=== PATIENT | female | born 1940 | race Caucasian/White ===

== ENCOUNTER 2016-12-24 22:12 | Emergency (ER) | payer MEDICARE, BC ==
--- NOTE | ~2016-12-24 | CR181 ---
[facility] A Service of [facility] RADIOLOGY TEXT RESULTS PATIENT: GERMAN CAT LOCATION: SED : 38 UNIT #: [id number] AGE: [address]: Luis E Sheehan MD SEX: F ORDER DR: [id number] [place] [id number] E MR#: [id number] Acc #: [id number] NAME: GERMAN CAT : 1940 SEX: F STUDY DATE/TIME: 12/24/2016 22:31 UNIT: SED ROOM: STUDY DESCRIPTION: CR Lumbar Spine 2 or 3 Views Attending Physician: Luis E Sheehan M.D. Ordering Physician: Luis E Sheehan M.D. Primary Care Physician: Dimitri Georges D.O. MEDICAL IMAGING REPORT This report is preliminary unless electronic signature is present. EXAM Lumbar spine series HISTORY Back pain, back of left leg pain, started Easter. No known injury. TECHNIQUE AP and 2 lateral views of the lumbar spine are presented. FINDINGS There are 5 lumbar-type vertebral segments. Diminished bony mineralization. No traumatic fracture or malalignment. Vertebral body heights are normal. Moderate to marked intervertebral disc space narrowing L5-S1. Vacuum disc phenomena at L5-S1 and L4-L5. Multilevel anterior and lateral marginal endplate osteophyte formations. Moderate to marked facet degenerative changes L3-L4, L4-L5, L5-S1. Appearance on the lateral view raises possibility of potentially significant neural foraminal narrowing L5-S1. The visualized bony ring of pelvis is intact. Moderate to marked narrowing of the bilateral hip joints. Visualized lower thoracic spine shows mild generalized loss of height in the T11 vertebral body. The lung bases are clear. Visualized bowel gas pattern normal. Extensive atherosclerotic arterial calcifications. Dictated by... Luis E Heller M.D. THIS IS AN ELECTRONICALLY VERIFIED REPORT Luis E Heller M.D. at 12/25/2016 10:44 PM JSK/pcl [facility] A Service of [facility] RADIOLOGY TEXT RESULTS PATIENT: GERMAN CAT LOCATION: SED : 38 UNIT #: [id number] AGE: [address]: Luis E Sheehan MD SEX: F ORDER DR: TD: 12/24/2016 23:52 JOB #: [id number] MEDICAL IMAGING REPORT Page 1 of 1
--- NOTE | ~2016-12-24 | CR172 ---
[facility] A Service of [facility] RADIOLOGY TEXT RESULTS PATIENT: GERMAN CAT LOCATION: SED : 38 UNIT #: [id number] AGE: [address]: Luis E Sheehan MD SEX: F ORDER DR: [id number] [place] [id number] E MR#: [id number] Acc #: [id number] NAME: GERMAN CAT : 1940 SEX: F STUDY DATE/TIME: 12/24/2016 22:26 UNIT: SED ROOM: STUDY DESCRIPTION: CR Knee 3 Views Lt Attending Physician: Luis E Sheehan M.D. Ordering Physician: Luis E Sheehan M.D. Primary Care Physician: Dimitri Georges D.O. MEDICAL IMAGING REPORT This report is preliminary unless electronic signature is present. EXAM Left knee series 12/24/2016 HISTORY Trauma. Back pain, back of left leg pain started Easter. No known injury. FINDINGS AP lateral and sunrise views of left knee are presented. No traumatic fracture or malalignment. Mild narrowing medial joint space compartment. No joint effusion. No acute appearing soft tissue abnormality. Extensive atherosclerotic arterial calcifications. Surgical clips medial leg perhaps from prior vascular intervention. Dictated by... Luis E Heller M.D. THIS IS AN ELECTRONICALLY VERIFIED REPORT Luis E Heller M.D. at 12/25/2016 10:44 PM KANCHAN/alicia TD: 12/24/2016 23:52 JOB #: [id number] MEDICAL IMAGING REPORT Page 1 of 1
[~2016-12-24 22:12] MED LIST: AFRIN3 ML IH; ALTACE PO; ALTACE10 MG PO; AMLODIPINE BES2.5 MG PO; AMOXICILLIN875 MG PO; ASPIRIN81 M1 PO; ASPIRIN81 M2 PO; ASPIRINEC PO; BENZONATATE PO; CARDURA4 M1 PO; CATAPRES0.1 M1; CELLCEPT250 MG PO; CRESTOR10 MG PO; FERROUS GLUCON324 MG PO; FISH OIL 1,2001 EACH PO; GLUCOPHAGE500 M1 PO; GLYBURIDE1.25 MG PO; GLYBURIDE2.5 M1 PO; HYDRALAZINE HC100 MG PO; HYDRALAZINE HCL25 MG PO; HYDRALAZINE HCL50 MG PO; IRON PO; IRON134 MG PO; KEFLEX500 M1 PO; KEFLEX500 MG PO; LASIX PO; LASIX20 MG PO; LEVAQUIN250 MG DOB; LEVOFLOXACIN750 MG PO; LEVOTHROID50 MCG PO; LEVOTHYROXINE50 MC1 PO; LEVOTHYROXINE50 MCG PO; LOPRESSOR PO; LORTAB 5-325 M1 EACH PO; LORTAB 7.5-5001 TAB PO; MACROBID100 M1 PO; METFORMIN HCL500 M1 PO; METFORMIN PO; METOPROLOL SUCC50 MG PO; METOPROLOL TAR25 MG PO; PANTOPRAZOLE SO40 MG PO; PHENERGAN25 M1 PO; PLAVIX PO; PRAVACHOL80 MG PO; PREDNISONE PO; PROTONIX PO; PROVASTATIN PO; RAMIPRIL10 MG PO; SERTRALINE HCL25 M1 PO; SERTRALINE HCL25 M2 PO; SIMVASTATIN40 MG PO; TIROSINT50 MCG PO; TRIAMTERENE-HCT1 TA6 PO; ULTRAM PO; VITAMIN E800 UNIT PO; ZANTAC150 MG PO; ZITHROMAX PO; ZITHROMAX1 G/PKT PO; ZOFRAN PO; ZOLOFT PO; ZYRTEC10 M2 PO; [UNRECOGNIZED DRUG - OTHER] PO
== END 2016-12-25 00:45 | disposition home or self-care (01) ==
LOC: SED 22:12
DX: M25.562 Pain in left knee (principal); E11.9 Type 2 diabetes mellitus without complications; Z95.1 Presence of aortocoronary bypass graft; Z90.710 Acquired absence of both cervix and uterus
CPT/HCPCS: 72100; 73562; 99283; 99284